=== PATIENT | male | born 1985 | race Caucasian/White ===

== ENCOUNTER 2019-10-09 10:40 | Emergency (ER) | payer OTHER, SELFPAY ==
[2019-10-09 10:46] VITALS: BP 179/100; PULSE 84; RESP 16; TEMP 36.7; O2SAT 100
--- NOTE | 2019-10-09 10:55 | ED.UPPEXIN ---
HPI - Extremity Injury (Upper) General Chief Complaint: Extremity Injury, Upper Stated Complaint: finger injury Time Seen by Provider: 10/09/19 10:55 Source: patient Mode of arrival: ambulatory Limitations: no limitations History of Present Illness HPI narrative: Patient is a 34-year-old male who presents for evaluation of injury to left hand. Patient reports that he was at work, had a vice pull back onto his left index finger while adjusting a tire, and sustained a laceration to his left finger. Patient is left-hand dominant. He denies any finger numbness. Reports no active bleeding. Patient is up-to-date on his tetanus. No severe pain. Patient was unsure if his wound warranted stitches, thus he sought care in the emergency department. Patient was wearing gloves. Related Data Home Medications Medication Instructions Recorded Confirmed No Home Medications 10/09/19 10/09/19 Allergies Allergy/AdvReac Type Severity Reaction Status Date / Time No Known Allergies Allergy Verified 10/09/19 11:00 Review of Systems Review of Systems: Narrative: CONSTITUTIONAL: Denies fever CARDIOVASCULAR: Denies chest pain RESPIRATORY: Denies cough or dyspnea. GASTROINTESTINAL: Denies abdominal pain SKIN: Denies rash MUSCULOSKELETAL: Denies back pain NEUROLOGIC: Denies headache PMFSH Past Medical History Medical History No pertinent past medical history Surgical History Surgical History (Updated 10/09/19 @ 11:08 by Jennifer Rosenthal MD) No pertinent past surgical history Social History Social History (Updated 10/09/19 @ 11:09 by Jennifer Rosenthal MD) Smoking status: Light tobacco smoker Alcohol intake: current Substance use: never Gender identity (if verbalized by the patient): Male Exam Narrative: Exam Narrative: GENERAL: Awake, alert, conversant HEAD: Normocephalic, atraumatic. EYES: PERRLA and EOMI. ENT: Nares clear, no rhinorrhea or epistaxis. Mucous membranes moist. NECK: Supple. CHEST: No respiratory distress, breathing even and non labored HEART: Regular rate, sinus rhythm ABDOMEN:Non distended, non tender EXTREMITIES: Normal range of motion. No deformity. 1 cm superficial, linear abrasion to the lateral aspect of the proximal metacarpal, second digit. No deep tissue injury. No active bleeding. No foreign bodies. Superficial skin tear over the second MCP. Intact sensation, median, ulnar, radial nerve distribution. Radial pulses 2+. Intact flexion extension at the wrist without bleeding. SKIN: Warm, dry, no rash. NEURO:No focal deficits. Alert and oriented x3 Course Vital Signs Vital signs: Vital Signs Temperature 36.7 C 10/09/19 10:46 Pulse Rate 84 10/09/19 10:46 Respiratory Rate 16 10/09/19 10:46 Blood Pressure 179/100 H 10/09/19 10:46 Pulse Oximetry 100 10/09/19 10:46 Temperature 36.7 C 10/09/19 10:46 Pulse Rate 84 10/09/19 10:46 Respiratory Rate 16 10/09/19 10:46 Blood Pressure 179/100 H 10/09/19 10:46 Pulse Oximetry 100 10/09/19 10:46 MDM - Extremity Injury (Upper) MDM Narrative Medical decision making narrative: Patient presenting for evaluation of laceration to left index finger. At the time of initial assessment, ABCs are intact. Patient has intact sensation in median, ulnar, radial nerve distribution. There is no gaping wound, active bleeding. No tenderness over the metacarpal, phalanxes. There is no edema, deformity, no sign of osseous injury. No sign of foreign body. Patient is up-to-date on his tetanus. At this point, I believe we can do simple wound care. I do not feel we need stitches as there is no deep tissue structure involvement or gaping injury. Patient was then discharged home with wound care instructions in stable condition. Discharge Plan Discharge Clinical Impression: Finger laceration Qualifiers: Encounter type: initial encounter Finger: index finger Damage to n
--- NOTE | 2019-10-09 11:06 | PC.NURSE ---
Report to MARTÍNEZ Michelle to continue care.
[2019-10-09 11:27] VITALS: BP 160/98; PULSE 80; RESP 20; O2SAT 98
== END 2019-10-09 11:29 | disposition home or self-care (01) ==
PROVIDERS: Emergency Provider Emergency Medicine
DX: S61.211A Laceration without foreign body of left index finger without damage to nail, initial encounter (principal); F17.200 Nicotine dependence, unspecified, uncomplicated; W22.8XXA Striking against or struck by other objects, initial encounter
CPT/HCPCS: 99282